=== PATIENT | male | born 1950 | race Caucasian/White ===

== ENCOUNTER 2023-03-11 09:40 | Inpatient (IN) | payer OTHER ==
[~2023-03-11] VITALS: Ht 172.7 cm; Wt 77.2 kg
[~2023-03-11 09:40] MED LIST: ASPI81CH PO; ATOR80 PO; Aspir 8181 MG PO; CLOP75 PO; DIVA250ER PO; GLIP10 PO; INSULANPEN SC; LISI5 PO; MAGNESIUM OXID500 MG PO; MELA3 PO; METF500C PO; METO25ER PO; MULTI-VITAMIN1 EAC2 PO; NITR.4SL SL; Novolog Fl100 UNIT/1 SQ; QUETIAPINE FUMA50 M2 PO; RISPERDAL PO; ROSU10TA PO; TICA90TA PO; TRAZ100 PO; Vitamin B-121000 MCG PO
[2023-03-11 10:44] LABS: BASOPHILS ABSOLUTE AUTO 0.04 K/mm3 (0.00-0.23); BASOPHILS PERCENT AUTO 0 % (0-2); EOSINOPHILS ABSOLUTE AUTO 0.15 K/mm3 (0.00-0.68); EOSINOPHILS PERCENT AUTO 2 % (0-6); Hematocrit 36.3 % (37.0-53.0); Hemoglobin 11.5 g/dL (13.5-17.5); IMMATURE GRAN ABSOLUTE AUTO 0.03 K/mm3 (0.00-0.10); IMMATURE GRAN PERCENT AUTO 0 % (0-1); LYMPHOCYTES ABSOLUTE AUTO 0.56 K/mm3 (0.84-5.20); LYMPHOCYTES PERCENT AUTO 6 % (21-46); MONOCYTES ABSOLUTE AUTO 0.49 K/mm3 (0.16-1.47); MONOCYTES PERCENT AUTO 5 % (4-13); Mean Corpuscular HGB Conc 31.7 g/dL (31.5-36.5); Mean Corpuscular Volume 89 fL (80-100); Mean Platelet Volume 10.3 fL (9.1-12.4); NEUTROPHILS ABSOLUTE AUTO 7.92 K/mm3 (1.96-9.15); NEUTROPHILS PERCENT AUTO 86 % (41-73); Platelet Count 227 K/mm3 (150-400); RDW Coefficient Variation 16.5 % (11.7-14.2); RDW Standard Deviation 53.3 fL (35.1-46.3); White Blood Cell Count 9.19 K/mm3 (4.00-11.30)
[2023-03-11 11:33] LABS: Influenza A, PCR NEGATIVE (NEGATIVE); Influenza B, PCR NEGATIVE (NEGATIVE); Resp Syncytial Virus, PCR NEGATIVE (NEGATIVE); SARS-Cov-2 (COVID-19) PCR, MMC NEGATIVE (NEGATIVE)
[2023-03-11] MEDS ORDERED: METO50ER PO (13:34)
--- NOTE | 2023-03-11 18:40 | NUR ---
ARRIVAL: I recieved report from Mellissa FLORIAN RN. Patient arrived to PCU 01 via gurney and was slid to the bed. He is alert and oriented. Oxygen via NC at 4l, saturations are difficult to obtain. His breating is even and unlabored. VSS. Patiet repositioned to his left side. Call light in reach.
[2023-03-11 19:05] LABS: Albumin, Blood 2.7 g/dL (3.4-5.0); Albumin/Globulin Ratio 0.8 (0.8-1.8); Bilirubin, Total 0.3 mg/dL (0.1-1.0); Bun/Creatinine Ratio 32.3 (12.0-20.0); Calcium, Blood 8.2 mg/dL (8.5-10.1); Creatinine, Blood 1.55 mg/dL (0.60-1.20); Globulin, Blood 3.5 g/dL (2.2-4.0); Potassium, Blood 4.6 mmol/L (3.5-5.5); Total Protein, Blood 6.2 g/dL (6.4-8.2)
[2023-03-11 20:49] VITALS: BP 103/92
[2023-03-12] VITALS (7 sets, daily range): BP systolic 108–120; BP diastolic 85–96
[2023-03-12 04:13] LABS: BASOPHILS ABSOLUTE AUTO 0.03 K/mm3 (0.00-0.23); BASOPHILS PERCENT AUTO 0 % (0-2); EOSINOPHILS ABSOLUTE AUTO 0.13 K/mm3 (0.00-0.68); EOSINOPHILS PERCENT AUTO 1 % (0-6); Hematocrit 35.3 % (37.0-53.0); Hemoglobin 11.2 g/dL (13.5-17.5); IMMATURE GRAN ABSOLUTE AUTO 0.02 K/mm3 (0.00-0.10); IMMATURE GRAN PERCENT AUTO 0 % (0-1); LYMPHOCYTES ABSOLUTE AUTO 0.77 K/mm3 (0.84-5.20); LYMPHOCYTES PERCENT AUTO 8 % (21-46); MONOCYTES ABSOLUTE AUTO 0.46 K/mm3 (0.16-1.47); MONOCYTES PERCENT AUTO 5 % (4-13); Mean Corpuscular HGB 27.1 pg (26.0-34.0); Mean Corpuscular HGB Conc 31.7 g/dL (31.5-36.5); Mean Corpuscular Volume 86 fL (80-100); Mean Platelet Volume 10.6 fL (9.1-12.4); NEUTROPHILS ABSOLUTE AUTO 7.88 K/mm3 (1.96-9.15); NEUTROPHILS PERCENT AUTO 85 % (41-73); Platelet Count 257 K/mm3 (150-400); RDW Coefficient Variation 16.4 % (11.7-14.2); RDW Standard Deviation 50.6 fL (35.1-46.3); Red Blood Cell Count 4.13 M/mm3 (4.30-5.90); White Blood Cell Count 9.29 K/mm3 (4.00-11.30)
[2023-03-12 04:31] LABS: Bun/Creatinine Ratio 31.4 (12.0-20.0); Calcium, Blood 8.2 mg/dL (8.5-10.1); Creatinine, Blood 1.59 mg/dL (0.60-1.20); Potassium, Blood 4.6 mmol/L (3.5-5.5)
--- NOTE | 2023-03-12 05:38 | NUR ---
SHIFT SUMMARY ASSUMED CARE OF PT AT 1900. PT IS A/OX4 BUT ODD. FOR EXAMPLE, PT REPEATS HIMSELF, SUCH STATING FAVORITE FOOD IS LIVER AND ONIONS AND PT WILL BRING UP IRRELIVENT SUBJECTS SUCH HIS BIRTHDAY BEING IN 4 MONTHS. HEART SOUNDS TACHY. PT RATE WAS BETWEEN 80-110 WHILE SLEEPING BUT 120-130 WHILE AWAKE. HOSPITALIST NOTIFIED AND ORDERED HOME MEDIATIONS. PT PITTING EDEMA IN LEGS. AT 0330 PT C/O CHEST PAIN LIKE WHEN HE HAD A HEART ATTACK. EKG DONE, HOSPITALIST ORDERED LABS. THIS NURSE WENT TO REASSESS AND ASKED OF PAIN WAS BETTER AND PT SAID "YES, AFTER THE TUMS". PT USED A CONDOM CATH DURING THE NOC. PT USED BEDPAN. HAS SOME RED AREA IN GROIN AND SCRAPES ON FEET.
--- NOTE | 2023-03-12 10:00 | NUR ---
UPDATE DRIVERS' CASH CLERK IN ROOM WITH PT.
--- NOTE | 2023-03-12 16:12 | NUR ---
SHIFT SUMMARY/REPORT GIVEN PT ALERT AND ORIENTED X 4. FORGETFUL AT TIMES. REPEATS QUESTIONS. HR STABLE. BP STABLE. NO CP OR PRESSURE REPORTED T/O SHIFT. DR. DEJESUS CONSULTED. PLAN TO CONT DIURESING PT AND POSSIBLE ANGIO LATER ON. OXYGEN SATURATION MAINTAINED ABOVE 92% ON 2 L VIA NC. PT 2 PERSON ASSIST UP TO COMMODE. DOES NOT USE CALL LIGHT, INSTRUCTED HOW TO USE MULTIPLE TIMES. BED ALARM IN PLACE. CALL LIGHT WITHIN REACH. REPORT GIVEN TO KATHY Gresham RN.
[2023-03-13 00:15] VITALS: BP 117/87
[2023-03-13 03:47] LABS: BASOPHILS ABSOLUTE AUTO 0.05 K/mm3 (0.00-0.23); BASOPHILS PERCENT AUTO 1 % (0-2); EOSINOPHILS ABSOLUTE AUTO 0.15 K/mm3 (0.00-0.68); EOSINOPHILS PERCENT AUTO 2 % (0-6); Hematocrit 34.6 % (37.0-53.0); Hemoglobin 11.2 g/dL (13.5-17.5); IMMATURE GRAN ABSOLUTE AUTO 0.02 K/mm3 (0.00-0.10); IMMATURE GRAN PERCENT AUTO 0 % (0-1); LYMPHOCYTES ABSOLUTE AUTO 0.93 K/mm3 (0.84-5.20); LYMPHOCYTES PERCENT AUTO 11 % (21-46); MONOCYTES ABSOLUTE AUTO 0.54 K/mm3 (0.16-1.47); MONOCYTES PERCENT AUTO 7 % (4-13); Mean Corpuscular HGB 27.4 pg (26.0-34.0); Mean Corpuscular HGB Conc 32.4 g/dL (31.5-36.5); Mean Corpuscular Volume 85 fL (80-100); Mean Platelet Volume 10.7 fL (9.1-12.4); NEUTROPHILS ABSOLUTE AUTO 6.66 K/mm3 (1.96-9.15); NEUTROPHILS PERCENT AUTO 80 % (41-73); Platelet Count 240 K/mm3 (150-400); RDW Coefficient Variation 16.4 % (11.7-14.2); RDW Standard Deviation 50.4 fL (35.1-46.3); Red Blood Cell Count 4.09 M/mm3 (4.30-5.90); White Blood Cell Count 8.35 K/mm3 (4.00-11.30)
[2023-03-13 04:16] LABS: Albumin, Blood 2.7 g/dL (3.4-5.0); Anion Gap 9 mmol/L (6-16); Blood Urea Nitrogen 56 mg/dL (8-24); Bun/Creatinine Ratio 33.3 (12.0-20.0); CO2, Blood 21 mmol/L (21-32); Calcium, Blood 8.6 mg/dL (8.5-10.1); Chloride, Blood 109 mmol/L (98-108); Creatinine, Blood 1.68 mg/dL (0.60-1.20); Glomerular Filtration Rate 43 (60-); Glucose, Blood 187 mg/dL (70-99); Phosphorus, Blood 3.8 mg/dL (2.5-4.9); Potassium, Blood 4.4 mmol/L (3.5-5.5); Sodium, Blood 139 mmol/L (136-145)
[2023-03-13 04:23] VITALS: BP 102/86
--- NOTE | 2023-03-13 04:27 | NUR ---
SHIFT SUMMARY ASSUMED CARE OF PT AT 1900. PT IS A/OX4. HEART SOUNDS TACHY. LUNG SOUNDS DIMINISHED AT BASES. PT REMAINED ON 2L NC, SATURATIONS ABOVE 95%. PT ONLY SLEPT ABOUT 10 MIN AT A TIME. PT WAS A 2P ASSIST TO BSC. PT HAD SMALL BM. PT USED CONDOM CATH DURING THE NOC. PT MADE NPO AT MIDNIGHT FOR POSSIBLE ANGIO PER CARDIOLOGY NOTE. PT STARTED ON FLUID RESTRICTION ALSO. PT HAD NO NEW COMPLAINTS.
[2023-03-13 07:26] VITALS: BP 122/98
--- NOTE | 2023-03-13 09:11 | NUR ---
UPDATE FACILITY OPERATIONS MANAGER AND HOSPITALIST NOTIFIED OF INCREASE IN BNP
[2023-03-13 11:16] VITALS: BP 109/92
--- NOTE | 2023-03-13 15:01 | NUR ---
update notified of 11 beat run of vtach. orders to do a repeat mag level
[2023-03-13 16:34] VITALS: BP 108/77
--- NOTE | 2023-03-13 17:43 | NUR ---
SHIFT SUMMARY PT ALERT AND ORIENTED X 4. FORGETFUL AT TIMES. PT REPEATS SELF FREQUENTY. YARD CALLER AND MD NOTIFIED OF PT'S INCREASE IN BNP. PT 2 PERSON ASSIST TO CHAIR FOR MEALS AND COMMODE. PT DOES NOT USE CALL LIGHT. FREQUENT CHECKS TO SEE IF PT IS IN NEED OF ASSISTANCE. BP STABLE. HR STABLE. SR-ST 130'S. AWARE OF 11 BEAT RUN OF VTACH. MAG WNL. OXYGEN SATURATION MAINTAINED ABOVE 92% ON 2 L VIA NC. CAREGIVER AT BEDSIDE THIS EVENING. PT Q 2 TURN. COCCYX RED. MEPLEX IN PLACE. NO REPORTS OF CP OR PRESSURE. BED IN LOWEST POSITION. BED ALARM IN PLACE. WILL CONT TO MONITOR UNTIL REPORT GIVEN TO NIGHTSHIFT RN.
[2023-03-13 20:40] VITALS: BP 111/98
[2023-03-14] VITALS: BP 123/94
[2023-03-14 03:58] LABS: BASOPHILS ABSOLUTE AUTO 0.04 K/mm3 (0.00-0.23); BASOPHILS PERCENT AUTO 0 % (0-2); EOSINOPHILS ABSOLUTE AUTO 0.12 K/mm3 (0.00-0.68); EOSINOPHILS PERCENT AUTO 1 % (0-6); Hematocrit 33.7 % (37.0-53.0); Hemoglobin 11.2 g/dL (13.5-17.5); IMMATURE GRAN ABSOLUTE AUTO 0.03 K/mm3 (0.00-0.10); IMMATURE GRAN PERCENT AUTO 0 % (0-1); LYMPHOCYTES ABSOLUTE AUTO 0.57 K/mm3 (0.84-5.20); LYMPHOCYTES PERCENT AUTO 6 % (21-46); MONOCYTES ABSOLUTE AUTO 0.47 K/mm3 (0.16-1.47); MONOCYTES PERCENT AUTO 5 % (4-13); Mean Corpuscular HGB 27.6 pg (26.0-34.0); Mean Corpuscular HGB Conc 33.2 g/dL (31.5-36.5); Mean Corpuscular Volume 83 fL (80-100); Mean Platelet Volume 10.7 fL (9.1-12.4); NEUTROPHILS PERCENT AUTO 88 % (41-73); Platelet Count 244 K/mm3 (150-400); RDW Coefficient Variation 16.3 % (11.7-14.2); RDW Standard Deviation 48.7 fL (35.1-46.3); Red Blood Cell Count 4.06 M/mm3 (4.30-5.90); White Blood Cell Count 10.43 K/mm3 (4.00-11.30)
[2023-03-14 04:18] LABS: Albumin, Blood 2.7 g/dL (3.4-5.0); Anion Gap 7 mmol/L (6-16); Blood Urea Nitrogen 50 mg/dL (8-24); Bun/Creatinine Ratio 34.7 (12.0-20.0); CO2, Blood 26 mmol/L (21-32); Calcium, Blood 8.5 mg/dL (8.5-10.1); Chloride, Blood 106 mmol/L (98-108); Creatinine, Blood 1.44 mg/dL (0.60-1.20); Glomerular Filtration Rate 51 (60-); Glucose, Blood 191 mg/dL (70-99); Phosphorus, Blood 3.4 mg/dL (2.5-4.9); Potassium, Blood 4.2 mmol/L (3.5-5.5); Sodium, Blood 139 mmol/L (136-145)
[2023-03-14 04:24] VITALS: BP 115/93
--- NOTE | 2023-03-14 04:28 | NUR ---
SHIFT SUMMARY ASSUMED CARE OF PT AT 1900. PT IS A/OX4. PT HR RANGED FROM 70-135. LUNG SOUNDS DIMINISHED. PT WAS RA FOR PART OF THE SHIFT BUT DURING THE NOC NEEDED 2L NC TO MAINTAIN SATS. PT HAD CONDOM CATH FOR STRICT I/O. PT REMAINED IN BED BUT DID NOT SLEEP.
[2023-03-14 07:34] VITALS: BP 117/93
--- NOTE | 2023-03-14 10:09 | NUR ---
AM NOTE; PT ALERT AND ORIENTED X3, FLAT AFFECT HX SCHIZO, ABLE TO COMMUNICATE NEEDS COOPERATIVE WITH CARES. 1PA FOR TRANSFERS. PT WAS ASSISTED TO CHAIR THIS MORNING FOR BREAKFAST WITH NO ISSUES RECEIVED A BEDBATH WELL. DENIES CHEST PAIN/PRESSURE. VITALS HRR ST 120'S, SBP 115'S, SATS KEPT ABOVE 92% ON RA, AFEBRILE. CONDOM CATH WAS IN PLACE AT SHIFT CHANGE FOR ACCURATE I&O'S PT HAD A HARD TIME KEEPING CONDO CATH IN PLACE, ATTENDS WITH PEE PAD ON. PT ABLE TO USE BSC FOR TOILETING. REMAINS ON 2L FR PT COMPLIANT. NO OTHER ISSUES ENCOUNTERED THIS MORNING PT NOW BACK IN BED, CALL LIGHTS IN REACH WILL CONTINUE TO MONITOR
[2023-03-14 11:36] VITALS: BP 105/83
[2023-03-14 16:43] VITALS: BP 107/84
--- NOTE | 2023-03-14 17:19 | NUR ---
PT SUMMARY: SEE AM NOTES; PT HAD AN EPISODE OF CHEST PRESSURE 5/10 TODAY, MG, TROP AND BNP WAS ORDERED MG AND TROP ARE WNL, BNP TRENDED DOWN 3518. TYLENOL WAS ORDERED AND WAS EFFECTIVE. REPEAT CHEST XRAY WAS DONE SMALL-MODERATE PLEURAL EFFUSION NOTED, LASIX INCREASED TO 60MG. PT REMAINED ON RA SATS LEPT ABOVE 95%, SBP 110'S, HRR ST 120'S BACK AND FORTH SR 70'S WITH BIGEMINY, METOPROLOL IV 5MG WAS GIVEN X1 NO CHANGES ON HEART RATE STILL CONSISTENTLY ST 120'S, AFEBRILE. CAREGIVERS WER IN TODAY WAS GIVEN UPDATED REGARDING PT'S STATUS. PT REMAINED ON 2L FLUID RESTRICTION, INCONTINTENT OF URINE, USES BSC FOR BM'S. NO OTHER ISSUES AT THIS TIME. PT CALLS APPROPRIATELY, COOPERATIVE WITH CARES WILL REPORT TO ONCOMING SHIFT
[2023-03-14 20:12] VITALS: BP 96/76
[2023-03-15] VITALS (9 sets, daily range): BP systolic 93–120; BP diastolic 72–100
[2023-03-15 03:28] LABS: BASOPHILS ABSOLUTE AUTO 0.04 K/mm3 (0.00-0.23); BASOPHILS PERCENT AUTO 0 % (0-2); EOSINOPHILS ABSOLUTE AUTO 0.18 K/mm3 (0.00-0.68); EOSINOPHILS PERCENT AUTO 2 % (0-6); Hematocrit 34.1 % (37.0-53.0); Hemoglobin 11.2 g/dL (13.5-17.5); IMMATURE GRAN ABSOLUTE AUTO 0.03 K/mm3 (0.00-0.10); IMMATURE GRAN PERCENT AUTO 0 % (0-1); LYMPHOCYTES ABSOLUTE AUTO 0.73 K/mm3 (0.84-5.20); LYMPHOCYTES PERCENT AUTO 8 % (21-46); MONOCYTES PERCENT AUTO 4 % (4-13); Mean Corpuscular HGB 27.5 pg (26.0-34.0); Mean Corpuscular HGB Conc 32.8 g/dL (31.5-36.5); Mean Corpuscular Volume 84 fL (80-100); Mean Platelet Volume 10.4 fL (9.1-12.4); NEUTROPHILS ABSOLUTE AUTO 7.77 K/mm3 (1.96-9.15); NEUTROPHILS PERCENT AUTO 85 % (41-73); Platelet Count 240 K/mm3 (150-400); RDW Coefficient Variation 16.4 % (11.7-14.2); RDW Standard Deviation 49.4 fL (35.1-46.3); Red Blood Cell Count 4.08 M/mm3 (4.30-5.90); White Blood Cell Count 9.15 K/mm3 (4.00-11.30)
[2023-03-15 03:47] LABS: Albumin, Blood 2.7 g/dL (3.4-5.0); Anion Gap 9 mmol/L (6-16); Blood Urea Nitrogen 42 mg/dL (8-24); Bun/Creatinine Ratio 31.3 (12.0-20.0); CO2, Blood 28 mmol/L (21-32); Calcium, Blood 8.7 mg/dL (8.5-10.1); Chloride, Blood 101 mmol/L (98-108); Creatinine, Blood 1.34 mg/dL (0.60-1.20); Glomerular Filtration Rate 56 (60-); Glucose, Blood 97 mg/dL (70-99); Phosphorus, Blood 3.1 mg/dL (2.5-4.9); Potassium, Blood 3.7 mmol/L (3.5-5.5); Sodium, Blood 138 mmol/L (136-145)
--- NOTE | 2023-03-15 05:48 | NUR ---
SHIFT SUMMARY ASSUMED CARE OF PT AT 1900. PT IS A/OX4 BUT FORGETFUL. PT ATTEMPTED TO GET OUT OF BED ONCE THIS SHIFT. HEART SOUNDS TACHY. LUNG SOUNDS DIMINSHED AT BASES. PT WA RA T/O THE NOC. CONDOM CATH. PT HAD NO NEW COMPLAINTS BUT DID NOT SLEEP AT ALL TONIGHT.
--- NOTE | 2023-03-15 17:58 | NUR ---
SHIFT SUMMARY: PT HAD NO ACUTE EVENTS THROUGHOUT THE SHIFT. PT VITALS REMAINED STABLE WITH SBP IN THE 120'S. HR IN THE 90'S-110'S. PT DENIES ANY CHEST PAIN OR PRESSURE. PT ABLE TO AMBULATE TO THE COMMODE WITH A 1 PERSON ASSIST.PT HAD A BED BATH THIS AFTERNOON. PT CONTINUES TO REMAIN ALERT AND ORIENTED X4. PT IMPULSIVE AT TIMES, BED ALARM TURNED ON WITH FREQUENT REMINDERS TO PUSH THE CALL LIGHT FOR ASSISTANCE. PT CONTINUES TO REMAIN ON A 1000ML FLUID RESTRICTION, PT COMPLIANT WITH THIS ORDER. PT HAS A CONDOM CATH IN PLACE WITH 1500 MLS URINE OUTPUT. WHICH IS DRAINING TO GRAVITY, YELLOW URINE. PT CAREGIVER AT THE BEDSIDE THIS AFTERNOON AND UPDATED TO PLAN OF CARE. POSSIBLE PLANS FOR AN ANGIOGRAM TOMORROW IF PT REMAINS STABLE T/O THE NIGHT. PT NPO AT MIDNIGHT FOR POSSIBLE PROCEDURE. WILL CONTINUE TO MONITOR AND GIVE REPORT TO ONCOMING NOC SHIFT RN.
[2023-03-16] VITALS (14 sets, daily range): BP systolic 90–115; BP diastolic 71–88
[2023-03-16 03:40] LABS: BASOPHILS ABSOLUTE AUTO 0.03 K/mm3 (0.00-0.23); BASOPHILS PERCENT AUTO 0 % (0-2); EOSINOPHILS ABSOLUTE AUTO 0.24 K/mm3 (0.00-0.68); EOSINOPHILS PERCENT AUTO 4 % (0-6); Hematocrit 33.4 % (37.0-53.0); Hemoglobin 11.2 g/dL (13.5-17.5); IMMATURE GRAN ABSOLUTE AUTO 0.02 K/mm3 (0.00-0.10); IMMATURE GRAN PERCENT AUTO 0 % (0-1); LYMPHOCYTES ABSOLUTE AUTO 0.79 K/mm3 (0.84-5.20); LYMPHOCYTES PERCENT AUTO 11 % (21-46); MONOCYTES ABSOLUTE AUTO 0.36 K/mm3 (0.16-1.47); MONOCYTES PERCENT AUTO 5 % (4-13); Mean Corpuscular HGB 27.7 pg (26.0-34.0); Mean Corpuscular HGB Conc 33.5 g/dL (31.5-36.5); Mean Corpuscular Volume 83 fL (80-100); Mean Platelet Volume 10.4 fL (9.1-12.4); NEUTROPHILS ABSOLUTE AUTO 5.47 K/mm3 (1.96-9.15); NEUTROPHILS PERCENT AUTO 79 % (41-73); Platelet Count 228 K/mm3 (150-400); RDW Coefficient Variation 16.7 % (11.7-14.2); RDW Standard Deviation 49.4 fL (35.1-46.3); Red Blood Cell Count 4.05 M/mm3 (4.30-5.90); White Blood Cell Count 6.91 K/mm3 (4.00-11.30)
[2023-03-16 03:52] LABS: Bun/Creatinine Ratio 28.7 (12.0-20.0); Calcium, Blood 8.4 mg/dL (8.5-10.1); Creatinine, Blood 1.29 mg/dL (0.60-1.20); Magnesium, Blood 1.5 mg/dL (1.6-2.4); Potassium, Blood 3.9 mmol/L (3.5-5.5)
--- NOTE | 2023-03-16 05:01 | NUR ---
SHIFT SUMMARY PT IS A/Ox4 AND COOPERATIVE WITH CARE PROVIDED BY MEMBERS OF STAFF. ANSWERS QUESTIONS APPROPRIATELY AND ABLE TO MAKE HIS NEEDS KNOWN. HX OF SCHIZOAFFECTIVE DISORDER WITH PT BECOMING IMPULSIVE AT TIMES. CARDIAC GÓMEZ, REMAINS IN SR-JUNCTIONAL TACH WITH HR RANGING IN THE 70-80'S AND THEN INTERMITTENTLY JUMPING TO 120'S. PT ALSO HAS SMALL 16 BEAT RUN OF VTACH. PT WAS ASYMPTOMATIC OF INCIDENT WITH NO REPORTS OF PALPITAIONS OR DIZZINESS. NO REPORTS OF CP OR PRESSURE T/O THE NIGHT. SBP HAS BEEN SOFT WITH SP IN THE 90'S, BUT HAS BEEN STABLE. RESPIRATORY GÓMEZ, MAINTAINS SPO2 >90% ON RA. INTERMITTENT EPISODES OF SOB WHEN LAYING FLAT OR WITH ABULATION. PT DOES RECOVER QUICKY HOWEVER. PER DAYSHIFT REPORT, PT DOSES OF LASIX HAVE BEEN INCREASED. GI/, PT IS INCONTINENT OF URINE, CONDOM CATH IN PLACE, PATENT AND DRAINING CLEAR/YELLOW URINE TO GRAVITY. ABLE TO ABULATE TO BSC WITH TWO PERSON ASSIST. PT HAS BEEN NPO SINCE MDN FOR SCHEDULED ANGIO THIS AM. NO NEW ORDERS AT THIS TIME, WILL REPORT TO ONCOMING RN. PETRA TRONCOSO OF THIS NOTE
--- NOTE | 2023-03-16 08:41 | NUR ---
AM NOTE: PT ALERT AND ORIENTED X4. ABLE TO ANSWER QUESTIONS AND MAKE NEEDS KNOWN. PT SBP 115 WITH HR 120'S. PT DENIES ANY CHEST PAIN/PRESSURE OR SOB. PT HAS BILATERAL EDEMA IN LOWER EXTREMETIES, SCROTUM AND MID ABDOMEN. PT DENIES ANY PAIN T/O BODY. DR. DEJESUS AT BEDSIDE THIS MORNING WITH PLANS FOR AN ANGIOGRAM THIS AFTERNOON. HELD THE LOVENOX PER DR. DEJESUS THIS MORNING FOR PROCEDURE. PT MADE NPO AT MIDNIGHT. WILL CONTINUE TO MONITOR T/O THE SHIFT.
--- NOTE | 2023-03-16 17:41 | NUR ---
SHIFT SUMMARY: PT REMAINED ALERT AND ORIENTED X4 THROUGHOUT THE SHIFT. ABLE TO ANSWER QUESTIONS AND MAKE NEEDS KNOWN. PT COOPERATIVE AND PLEASANT WITH STAFF. PT IMPULSIVE AT TIMES AND REMINDED TO USE THE CALL LIGHT FOR ASSISTANCE. PT BED ALARM ON FOR SAFETY. PT VITALS REMAINED STABLE WITH SBP 100'S HR 70'S-120'S. PT DENIED ANY CHEST PAIN OR PRESSURE T/O THE SHIFT. PT WENT FOR ANGIOGRAM TODAY AND RETURNED WITH A TR BAND IN THE RIGHT WRIST, WELL AN ACCESS SITE IN THE RIGHT UPPER ARM. TR BAND HAD 10 MLS OF AIR WHICH WAS DEFLATED AND REMOVED WITH NO BLEEDING, OOZING OR HEMATOMA PRESENT. PT HAS OBSITE IN PLACE AND ARMBOARD A REMINDER TO NOT USE WRIST. PT UPPER SITE HAS A DRESSING WHICH HAS NO BLEEDING, OOZING OR HEMATOMA PRESENT. PER DR. DEJESUS PT NEEDS A SURGICAL CONSULT FOR FURTHER INTERVENTION. CAREGIVER WAS AT THE BEDSIDE THIS EVENING AND WAS UPDATED TO PLAN OF CARE. PT TRANSITIONED TO PO LASIX WITH THE FIRST DOSE GIVEN THIS EVENING.PT HAS A CONDOM CATH IN PLACE, WHICH HAS HAD A TOTAL OF 2750 ML T/O THE SHIFT OF PALE YELLOW URINE, WHICH IS DRAINING TO GRAVITY. WILL CONTINUE TO MONITOR AND GIVE REPORT TO THE ONCOMING [facility] SHIFT RN.
[2023-03-17] VITALS (10 sets, daily range): BP systolic 79–98; BP diastolic 62–81
[2023-03-17 03:25] LABS: BASOPHILS ABSOLUTE AUTO 0.03 K/mm3 (0.00-0.23); BASOPHILS PERCENT AUTO 1 % (0-2); EOSINOPHILS ABSOLUTE AUTO 0.26 K/mm3 (0.00-0.68); EOSINOPHILS PERCENT AUTO 4 % (0-6); Hematocrit 33.5 % (37.0-53.0); Hemoglobin 11.3 g/dL (13.5-17.5); IMMATURE GRAN ABSOLUTE AUTO 0.02 K/mm3 (0.00-0.10); IMMATURE GRAN PERCENT AUTO 0 % (0-1); LYMPHOCYTES ABSOLUTE AUTO 0.59 K/mm3 (0.84-5.20); LYMPHOCYTES PERCENT AUTO 9 % (21-46); MONOCYTES ABSOLUTE AUTO 0.38 K/mm3 (0.16-1.47); MONOCYTES PERCENT AUTO 6 % (4-13); Mean Corpuscular HGB 27.8 pg (26.0-34.0); Mean Corpuscular HGB Conc 33.7 g/dL (31.5-36.5); Mean Corpuscular Volume 82 fL (80-100); Mean Platelet Volume 9.9 fL (9.1-12.4); NEUTROPHILS ABSOLUTE AUTO 4.97 K/mm3 (1.96-9.15); NEUTROPHILS PERCENT AUTO 80 % (41-73); Platelet Count 254 K/mm3 (150-400); RDW Coefficient Variation 16.8 % (11.7-14.2); RDW Standard Deviation 49.1 fL (35.1-46.3); Red Blood Cell Count 4.07 M/mm3 (4.30-5.90); White Blood Cell Count 6.25 K/mm3 (4.00-11.30)
[2023-03-17 03:41] LABS: Bun/Creatinine Ratio 24.8 (12.0-20.0); Calcium, Blood 8.7 mg/dL (8.5-10.1); Creatinine, Blood 1.33 mg/dL (0.60-1.20); Magnesium, Blood 1.9 mg/dL (1.6-2.4); Potassium, Blood 3.4 mmol/L (3.5-5.5)
--- NOTE | 2023-03-17 05:16 | NUR ---
SHIFT SUMMARY PT A&Ox4, CALLS AND COMMUNICATES NEEDS APPROPRIATELY, PT WITH FLAT AFFECT. BP SOFT WITH SBP 90's, MAP> 65, ASYMPTOMATIC. JUNCTIONAL SR-ST 70-110's, DENIES CP/PRESSURE. SpO2> 92% RA, DENIES SOB. PT DID NOT TRY TO GET OOB WITHOUT STAFF. CONDOM CATH CHANGED AT START OF SHIFT, REMAINED IN PLACE, DRAINING TO GRAVITY. NO BM THIS SHIFT. R RADIAL SITE REMAINS UNCHANGED, WNL, ARM BOARD IN PLACE. R BASILIC SITE REMAINS UNCHANGED, WNL, DRESSING C/D/I. BOTH SITES WITH NO S/S OF BRUISING, BLEEDING, OR HEMATOMA. NO OTHER EVENTS, WILL REPORT TO ONCOMING RN.
--- NOTE | 2023-03-17 17:42 | NUR ---
SHIFT SUMMARY PT A&OX4, FLAT AFFECT. COOPERATIVE. S02>90% ON RA. TELEMETRY SHOWS SINUS TACH, MOSTLY 100'S-110'S. BP SOFT. R RADIAL AND BASILIC SITES SOFT, NO BRUISING, NO BLEEDING. ARM BOARD IN PLACE. PT INCONTINENT VOID X2 THIS SHIFT, FULL BED CHANGE. NO BM THIS SHIFT. DENIES PAIN. UP TO CHAIR SBA W/ FWW TO SIT THIS EVENING AND EAT DINNER. REPOSITIONED Q2H. CALL LIGHT IN REACH. BED ALARM ON.
[2023-03-18 04:00] VITALS: BP 104/76
[2023-03-18 04:05] LABS: Hematocrit 33.9 % (37.0-53.0); Hemoglobin 11.2 g/dL (13.5-17.5); Mean Corpuscular HGB 27.8 pg (26.0-34.0); Mean Corpuscular Volume 84 fL (80-100); Mean Platelet Volume 10.4 fL (9.1-12.4); Platelet Count 241 K/mm3 (150-400); RDW Standard Deviation 50.6 fL (35.1-46.3); Red Blood Cell Count 4.03 M/mm3 (4.30-5.90); White Blood Cell Count 6.24 K/mm3 (4.00-11.30)
[2023-03-18 04:59] LABS: Albumin, Blood 2.8 g/dL (3.4-5.0); Albumin/Globulin Ratio 0.7 (0.8-1.8); Bilirubin, Total 0.5 mg/dL (0.1-1.0); Bun/Creatinine Ratio 24.5 (12.0-20.0); Calcium, Blood 8.5 mg/dL (8.5-10.1); Creatinine, Blood 1.47 mg/dL (0.60-1.20); Globulin, Blood 3.8 g/dL (2.2-4.0); Potassium, Blood 3.5 mmol/L (3.5-5.5); Total Protein, Blood 6.6 g/dL (6.4-8.2)
--- NOTE | 2023-03-18 05:26 | NUR ---
SHIFT SUMMARY PT REMAINS A/Ox4 AND COOPERATIVE WITH CARE PROVIDED BY MEMBERS OF STAFF. ANSWERS QUESTIONS APPROPRIATELY AND ABLE TO MAKE HIS NEEDS KNOWN. NO ACUTE EVENTS OVERNIGHT. HX OF SCHIZOAFFECTIVE DISORDER, SO PT CAN BE IMPULSIVE AT TIMES. EASILY REDIRECTABLE. CARDIAC GÓMEZ, CONTINUES TO BOUNCE AROUND ST-JUNCTIONAL RHYTHM WITH HR RANGING 80-110'S. NO REPORTS OF CP OR PRESSURE OF THIS NOTE. SBP REMAINS SOFT (80-90'S), BUT MAP >70. RESPIRATORY GÓMEZ, MAINTAINS SPO2 >90% RA WITH NO REPORTS OF SOB OR DYSPNEA T/O THE NIGHT. ABLE TO ABULATE TO BSC WITH 1 ASSIST W/FWW. CONTINUES TO BE INCONTINENT OF URINE, ATTENDS IN PLACE AND CHANGED PRN. Q2 TURNS PERFORMED ORDERED. RIGHT RADIAL ACCESS SITE FROM ANGIO 03/16 WNL, PROTECTIVE ARM BOARD STILL IN PLACE. BED ALARM ON AND CHAIR ALARM ON WHEN UP IN CHAIR. NO NEW ORDERS AT THIS TIME, WILL REPORT TO ONCOMING RN. PETRA TRONCOSO OF THIS NOTE
[2023-03-18 07:44] VITALS: BP 119/98
--- NOTE | 2023-03-18 11:14 | NUR ---
RN/DAY SHIFT SUMMARY MORNING SHIFT REPORT RECIEVED DURING THE MORNING GREETING WITH THE PATIENT. THE PAITENT WAS THEN ASSESSED AND MEDICATIONS WERE GIVEN WITH NO ISSUES. THE PATIENT HAS A NOTED FLAT AFFECT BUT IS PLEASANT OTHERWISE. CONTINUEING TO MONITOR.
[2023-03-18 11:28] VITALS: BP 90/71
--- NOTE | 2023-03-18 19:04 | NUR ---
TRANSFER: REPORT RECEIVED FROM RAGMANVU. PT TO UNIT AT ABOUT 1640. PT IS A/O, VSS. PT ORIENTED TO ROOM AND GIVEN CALL LIGHT. BED ALARM ON FOR SAFETY. LITTLE IS WNL AND DRAINING. HYDRO PLANT TECHNICIAN SITES AT R WRIST AND R AC ARE WNL, NO EDEMA OR REDNESS. TELE STABLE, AND VERIFIED WITH InVitae. PT DENIED CP OR SOB. WILL CTM AND REPORT TO NOC RN
[2023-03-18 20:17] VITALS: BP 93/70
[2023-03-19 04:54] VITALS: BP 118/82
[2023-03-19 05:08] LABS: Hematocrit 32.9 % (37.0-53.0); Hemoglobin 10.8 g/dL (13.5-17.5); Mean Corpuscular HGB 27.8 pg (26.0-34.0); Mean Corpuscular HGB Conc 32.8 g/dL (31.5-36.5); Mean Corpuscular Volume 85 fL (80-100); Mean Platelet Volume 10.2 fL (9.1-12.4); Platelet Count 241 K/mm3 (150-400); RDW Coefficient Variation 17.3 % (11.7-14.2); RDW Standard Deviation 51.6 fL (35.1-46.3); Red Blood Cell Count 3.89 M/mm3 (4.30-5.90)
--- NOTE | 2023-03-19 05:27 | NUR ---
EOS NOTE PATIENT A/OX4, FLAT AFFECT, CAN BE IMPULSIVE. BED ALARM IS ON, CALL LIGHT WITHIN REACH. EDUCATED PATIENT JACKHAMMER OPERATOR LIGHT USAGE MULTIPLE TIMES, PATIENT WOULD SET ALARM OFF RATHER THAN CALL FOR NEEDS. PATIENT DID NOT GRASP CALL LIGHT USAGE. PATIENT REMAINED ON BBB IN 100'S WITH PVC'S. FLUID RESTRICTION REMAINS IN PLACE, PATIET FOLLOWS IT APPROPRIATLY. ACCIDENTLY PULLED CONDOM CATH A FEW TIMES, PATIENT WAS PUT IN A BRIEF. MOSTLY INCONTINENT, SET ALARM OFF ONCE TO ATTEMPT TO USE A URINAL BUT PATIENT HAD ALREADY SOILED HIMSELF. ABRASIONS/SKIN TEARS THROUGHOUT IN SEEMINGLY DIFFERENT STAGES OF HEALING. PATIENTS SKIN APPEARS THIN AND FRAGILE. VSS, CALL LIGHT WITHIN REACH, BED ALARM ON. PATIENT GAIT IS SLOW, NOT INCREDIBLY WELL BALANCED, MOSTLY SHUFFLED.
[2023-03-19 05:43] LABS: Albumin, Blood 2.6 g/dL (3.4-5.0); Albumin/Globulin Ratio 0.8 (0.8-1.8); Bilirubin, Total 0.8 mg/dL (0.1-1.0); Bun/Creatinine Ratio 23.8 (12.0-20.0); Calcium, Blood 8.7 mg/dL (8.5-10.1); Creatinine, Blood 1.3 mg/dL (0.60-1.20); Globulin, Blood 3.4 g/dL (2.2-4.0); Potassium, Blood 3.5 mmol/L (3.5-5.5)
[2023-03-19 07:30] VITALS: BP 112/82
[2023-03-19 14:11] VITALS: BP 99/80
[2023-03-19] MEDS ORDERED: FURO20 PO (17:01)
--- NOTE | 2023-03-19 17:39 | NUR ---
DISCHARGE PT DISCHARGED HOME FROM UNIT AT APROX 1645. PT DETASSELING CREW SUPERVISOR GIVEN WRITTEN AND VERBAL INSTRUCTIONS AND VERBALIZED UNDERSTANDING. IV REMOVED. TELE REMOVED. DETASSELING CREW SUPERVISOR ASSISTED WITH DRESSING. WC TO CAR. [facility].
== END 2023-03-19 16:45 | disposition home health service (06) | DRG 280 ==
LOC: ER 09:40 → PCU 15:56 → SURS 15:56 → PCU 18:19 → SURS 03-18 17:45
PROVIDERS: Emergency Medicine; Internal Medicine; ADMIT Family Medicine
PROC: 4A023N8 Measurement of Cardiac Sampling and Pressure, Bilateral, Percutaneous Approach (ICD-10-PCS; principal; 2023-03-16)
PROC: B2161ZZ Fluoroscopy of Right and Left Heart using Low Osmolar Contrast (ICD-10-PCS; 2023-03-16)
PROC: B246ZZ3 Ultrasonography of Right and Left Heart, Intravascular (ICD-10-PCS; 2023-03-16)
DX: I11.0 Hypertensive heart disease with heart failure (principal); I21.A1 Myocardial infarction type 2; I50.21 Acute systolic (congestive) heart failure; R57.0 Cardiogenic shock; J96.01 Acute respiratory failure with hypoxia; J90 Pleural effusion, not elsewhere classified; N17.9 Acute kidney failure, unspecified; E87.20 Acidosis, unspecified; I47.29 Other ventricular tachycardia; Z20.822 Contact with and (suspected) exposure to COVID-19; Z66 Do not resuscitate; I25.10 Atherosclerotic heart disease of native coronary artery without angina pectoris; E83.42 Hypomagnesemia; G20 Parkinson's disease; E11.65 Type 2 diabetes mellitus with hyperglycemia; K21.9 Gastro-esophageal reflux disease without esophagitis; I50.82 Biventricular heart failure; F25.9 Schizoaffective disorder, unspecified; D63.1 Anemia in chronic kidney disease; I25.2 Old myocardial infarction; R62.7 Adult failure to thrive; R79.1 Abnormal coagulation profile; I08.1 Rheumatic disorders of both mitral and tricuspid valves; I25.5 Ischemic cardiomyopathy; E78.5 Hyperlipidemia, unspecified; N18.2 Chronic kidney disease, stage 2 (mild); N50.89 Other specified disorders of the male genital organs; D64.9 Anemia, unspecified; K80.20 Calculus of gallbladder without cholecystitis without obstruction; K82.8 Other specified diseases of gallbladder; E88.09 Other disorders of plasma-protein metabolism, not elsewhere classified; I27.20 Pulmonary hypertension, unspecified; E11.22 Type 2 diabetes mellitus with diabetic chronic kidney disease; Z99.81 Dependence on supplemental oxygen; Z95.5 Presence of coronary angioplasty implant and graft; Z68.28 Body mass index [BMI] 28.0-28.9, adult; Z79.4 Long term (current) use of insulin; Z79.01 Long term (current) use of anticoagulants; Z79.82 Long term (current) use of aspirin; Z79.899 Other long term (current) drug therapy
CPT/HCPCS: 0241U; 36415; 71045; 71260; 76937; 80048; 80053; 80069; 82947; 83605; 83735; 83880; 84484; 85025; 85027; 85379; 87040; 92526; 92610; 93005; 93010; 93460; 93970; 94760; 94761; 96365-59; 96366-59; 96367-59; 96375-59; 97110; 97162; 97530; 99152; 99153; 99285-25; A9270; C1769; C1887; C1894; C8929; J0456; J0696; J1644; J1650; J1815; J1940; J2250; J3010; J3475; J7030; J7050; Q9957; Q9967

== ENCOUNTER 2023-04-21 12:41 | Inpatient (IN) | payer OTHER ==
[~2023-04-21] VITALS: Ht 180.3 cm; Wt 74.4 kg
[2023-04-21] VITALS (19 sets, daily range): BP systolic 77–118; BP diastolic 43–85
[~2023-04-21 12:41] MED LIST changes: +FURO20 PO; +METO50ER PO
[2023-04-21 13:29] LABS: BASOPHILS ABSOLUTE AUTO 0.02 K/mm3 (0.00-0.23); BASOPHILS PERCENT AUTO 0 % (0-2); EOSINOPHILS ABSOLUTE AUTO 0.06 K/mm3 (0.00-0.68); EOSINOPHILS PERCENT AUTO 1 % (0-6); Hematocrit 32.7 % (37.0-53.0); Hemoglobin 10.4 g/dL (13.5-17.5); IMMATURE GRAN ABSOLUTE AUTO 0.03 K/mm3 (0.00-0.10); IMMATURE GRAN PERCENT AUTO 0 % (0-1); LYMPHOCYTES ABSOLUTE AUTO 0.51 K/mm3 (0.84-5.20); LYMPHOCYTES PERCENT AUTO 7 % (21-46); MONOCYTES ABSOLUTE AUTO 0.37 K/mm3 (0.16-1.47); MONOCYTES PERCENT AUTO 5 % (4-13); Mean Corpuscular HGB 28.5 pg (26.0-34.0); Mean Corpuscular HGB Conc 31.8 g/dL (31.5-36.5); Mean Corpuscular Volume 90 fL (80-100); Mean Platelet Volume 10.8 fL (9.1-12.4); NEUTROPHILS ABSOLUTE AUTO 6.41 K/mm3 (1.96-9.15); NEUTROPHILS PERCENT AUTO 87 % (41-73); Platelet Count 227 K/mm3 (150-400); RDW Coefficient Variation 17.6 % (11.7-14.2); RDW Standard Deviation 57.8 fL (35.1-46.3); Red Blood Cell Count 3.65 M/mm3 (4.30-5.90)
[2023-04-21 13:53] LABS: Albumin, Blood 2.7 g/dL (3.4-5.0); Albumin/Globulin Ratio 0.8 (0.8-1.8); Bilirubin, Total 0.4 mg/dL (0.1-1.0); Bun/Creatinine Ratio 37.6 (12.0-20.0); Calcium, Blood 7.8 mg/dL (8.5-10.1); Creatinine, Blood 2.02 mg/dL (0.60-1.20); Globulin, Blood 3.4 g/dL (2.2-4.0); Potassium, Blood 4.2 mmol/L (3.5-5.5); Total Protein, Blood 6.1 g/dL (6.4-8.2)
--- NOTE | 2023-04-21 19:07 | NUR ---
ICU ADMISSION: REPORT RECEIVED FROM ESTELA MACIEL IN ED. PT ARRIVED TO ICU-03 AT APPROX 1820. ON ARRIVAL, THE PT IS A&O TO ALL, ALTHOUGH NOTED TO BE A POOR HISTORIAN WHEN QUESTIONED ABOUT RECENT PRIOR ADMISSION. HE VISIBLY DYSNPEIC WHILE LAYING FLAT. LS COARSE/ DIM T/O, PT ON RA W/ O2 SATS > 92%. MONITOR SHOWS AFIB W/ HR 110-150s, BP STABLE. PT HAS NO GI COMPLAINTS & IS REQUESTING TO EAT. DR PERRY AT BEDSIDE COMPLETING CONSULTATION EVAL AT THAT TIME & STS THE PT IS OKAY TO EAT. LASIX ORDERED & GIVEN PER EMAR, THE PT STS HE WILL BE ABLE TO USE A URINAL. NO VOID SINCE ADMIT TO ICU. SKIN CONDITION OVERALL INTACT, ECCHYMOTIC. COCCYX IS SLIGHTLY PINK/ REDENNED, BLANCHABLE. PT's CAREGIVER, LEONELA, IS GOING TO BRING A COPY OF HIS HOME MEDICATION LIST IN AM. WILL CONTINUE TO MONITOR & REPORT OFF TO ONCOMING RN.
--- NOTE | 2023-04-21 19:42 | NUR ---
ASSUMED CARE OF PT AT 0715 BEDSIDE REPORT RECEIVED FROM ESTELA HERRON. PT IS A/O X4, PLEASANT AND COOPERATIVE. AFIB 120-130, AWAITING AMIODARONE DRIP FROM PHARMACY. BP 102/79 MAP 70, PER DR. PERRY, OK TO KEEP MAP >/= 65. ELEQUIS ORDERED. PLACED ON 2L NC DUE TO SUSTAINED DESATURATION WITH O2 SAT 68-75% WITH EXERTION. OOB TO BSC WITH MINIMAL ASSIST. BM X1, VOIDS USING BSC OR URINAL AFTER LASIX GIVEN. SKIN UNCHANGED, ADVISED PT OF PLAN TO REPOSITION EVERY 2 HOURS TO MAINTAIN SKIN INTEGRITY. MED REC NOT COMPLETED, CAREGIVER TO BRING IN CURRENT LIST OF MEDICATIONS TOMORROW MORNING. RN TO CONTINUE TO MONITOR
[2023-04-22] VITALS (28 sets, daily range): BP systolic 93–139; BP diastolic 63–103
[2023-04-22 03:41] LABS: BASOPHILS ABSOLUTE AUTO 0.02 K/mm3 (0.00-0.23); BASOPHILS PERCENT AUTO 0 % (0-2); EOSINOPHILS ABSOLUTE AUTO 0.05 K/mm3 (0.00-0.68); EOSINOPHILS PERCENT AUTO 1 % (0-6); Hematocrit 36.1 % (37.0-53.0); Hemoglobin 11.7 g/dL (13.5-17.5); IMMATURE GRAN ABSOLUTE AUTO 0.01 K/mm3 (0.00-0.10); IMMATURE GRAN PERCENT AUTO 0 % (0-1); LYMPHOCYTES ABSOLUTE AUTO 0.81 K/mm3 (0.84-5.20); LYMPHOCYTES PERCENT AUTO 12 % (21-46); MONOCYTES ABSOLUTE AUTO 0.34 K/mm3 (0.16-1.47); MONOCYTES PERCENT AUTO 5 % (4-13); Mean Corpuscular HGB 28.1 pg (26.0-34.0); Mean Corpuscular HGB Conc 32.4 g/dL (31.5-36.5); Mean Corpuscular Volume 87 fL (80-100); Mean Platelet Volume 10.3 fL (9.1-12.4); NEUTROPHILS ABSOLUTE AUTO 5.66 K/mm3 (1.96-9.15); NEUTROPHILS PERCENT AUTO 82 % (41-73); Platelet Count 268 K/mm3 (150-400); RDW Coefficient Variation 17.6 % (11.7-14.2); RDW Standard Deviation 55.6 fL (35.1-46.3); Red Blood Cell Count 4.16 M/mm3 (4.30-5.90); White Blood Cell Count 6.89 K/mm3 (4.00-11.30)
[2023-04-22 04:22] LABS: Alanine Aminotransfer (ALT/SGP 49 U/L (12-78); Albumin, Blood 2.8 g/dL (3.4-5.0); Albumin/Globulin Ratio 0.7 (0.8-1.8); Alk Phos 102 U/L (50-136); Anion Gap 10 mmol/L (6-16); Aspartate Aminotrans (AST/SGOT 33 U/L (12-37); Bilirubin, Total 0.6 mg/dL (0.1-1.0); Blood Urea Nitrogen 78 mg/dL (8-24); Bun/Creatinine Ratio 37.7 (12.0-20.0); CO2, Blood 21 mmol/L (21-32); Calcium, Blood 7.9 mg/dL (8.5-10.1); Chloride, Blood 106 mmol/L (98-108); Creatinine, Blood 2.07 mg/dL (0.60-1.20); Digoxin (Lanoxin) 0.52 ug/mL (0.80-2.00); Globulin, Blood 3.9 g/dL (2.2-4.0); Glomerular Filtration Rate 33 (60-); Glucose, Blood 242 mg/dL (70-99); Potassium, Blood 4.4 mmol/L (3.5-5.5); Sodium, Blood 137 mmol/L (136-145); Total Protein, Blood 6.7 g/dL (6.4-8.2)
--- NOTE | 2023-04-22 06:10 | NUR ---
NOC SHIFT SUMMARY PT IS A/O, SLEPT OFF AND ON, FLAT AFFECT. AFIB RATE 110-130, AMIODARONE INFUSING AT 0.5, RATE DECREASED AT 0300. BP STABLE, GOAL MAP 65 PER FLOOR SANDING MACHINE OPERATOR. 2 L NC WHILE ASLEEP, INTERMITTENT EPISODES OF APNEA. TOLERATING DIET WELL, NO NAUSEA. OCCASIONALLY INCONTINENT, USES URINAL WHEN AWAKE. SKIN INTACT, DISCOLORATION DUE TO VITILIGO. PIV RIGHT FOREARM, INFUSING WITH GOOD BLOOD RETURN. PIV LEFT WRIST SL, FLUSHES WELL. NO VISITORS AT BEDSIDE CURRENTLY, PT IS EXPECTING A CAREGIVER TO VISIT THIS AM. RN TO CONTINUE TO MONITOR.
--- NOTE | 2023-04-22 07:00 | NUR ---
ASSUMPTION OF CARE PT IS AWAKE DURING BEDSIDE REPORT. HE IS ALERT AND ORIENTED WITH FLAT AFFECT. HE IS RECEIVING AMIODARONE 0.5MG/HR. AFIB ON MONITOR WITH RATE 130S. SBP 110S-130S. HE DENIES CP AND PALPITATIONS AT THIS TIME. HE IS ON 2L NC. HE APPEARS ORTHOPNEIC BUT DENIES SYMPTOMS. LUNGS ARE CLEAR. BOWEL TONES ACTIVE, ABDOMEN SOFT. PT DENIES NEEDING TO VOID AT THIS TIME. BED ALARM ON, BED IN LOW POSITION, CALL LIGHT WITHIN REACH. SEE SHIFT ASSESSMENT.
--- NOTE | 2023-04-22 08:58 | NUR ---
UPDATE HOSPITALIST AND LAW OFFICE ASSISTANT ROUNDED THIS AM. PLAN TO TRANSITION TO PCU. PER LAW OFFICE ASSISTANT, START PO AMIODARONE BID STARTING THIS AM. CONTINUE AMIODARONE DRIP UNTIL THIS EVENING WHEN DRIP IS COMPLETE. PT CURRENTLY EATING BREAKFAST.
--- NOTE | 2023-04-22 10:13 | NUR ---
Pt resting in bed and is A&OX4. Pt with flat affect. Pt denies pain at this time. Mild dyspnea noted and is wearing O2 via NC. Engaged in therapeutic conversation regarding goals of care. Discussed options including current plan of care and considering hospice. Educated on hospice philosophy with V/U made by Pt. Discussed comfort care during hospital stay. Pt would like to focus on comfort and home with [facility]. Pt confirms living with caregiver Marya and Pt's Healthcare Proxy is Marya's mother Leslie. He is agreeable for this RN to call Marya and inform her of goals of care. Called and spoke with Marya. Relayed Pt's wishes with Marya reporting being in agreement. Spoke with Dr Royal and discussed case. Dr Royal signs hospice orders. Called and spoke with Jennifer from [facility]. Plan for [facility] to admit on Thursday. Caremanager office will fax documents to [facility]. Palliative Care will remain available
--- NOTE | 2023-04-22 14:14 | NUR ---
"Spiritual Care Visit | Pt. request Pt. is awake in bed and welcomes my visit. This accounting lecturer expressed gratitude for the Pts. service. Pt. verbally affirmed that he was a man of elian. Listened with empathy and a calming presence. Pt. displayed evidence of being guarded when attempts were made to facilitate a life review. Pt. also displayed evidence of being alert and aware of his present circumstances. Prayed with Pt. Pt. verbalized gratitude for the spiritual care visit."
--- NOTE | 2023-04-22 16:28 | NUR ---
SHIFT SUMMARY PT CONTINUES TO RECEIVE AMIODARONE 0.5MG/HR. PLAN TO CONTINUE INFUSION UNTIL 2100 AND CONTINUE PO AMIODARONE SCHEDULED PER DR PERRY. PT IS ALERT AND ORIENTED, USES CALL LIGHT APPROPRIATELY. HE IS OCCASIONALLY ORTHOPNEIC AND SOB WITH EXCERTION. 2L NC FOR COMFORT. LUNGS ARE CLEAR, DIMINISHED IN BASES. GOOD PO INTAKE THROUGHOUT THE DAY. BOWEL TONES ACTIVE, ABDOMEN SOFT. 1 SMALL BM THIS SHIFT. PT HAS HAD MULTIPLE INCONTINENT VOIDS AND TWO CONTINENT VOIDS. GLUCOSE 424, HOSPITALIST NOTIFIED AND TRANSITIONED TO HIGH SLIDING SCALE. HOSPICE REFERRAL FAXED BY CASE MANAGMENT. BED IN LOW POSITION AND CALL LIGHT WITHIN REACH.
[2023-04-23] VITALS (12 sets, daily range): BP systolic 99–116; BP diastolic 73–99
[2023-04-23 03:15] LABS: BASOPHILS ABSOLUTE AUTO 0.02 K/mm3 (0.00-0.23); BASOPHILS PERCENT AUTO 0 % (0-2); EOSINOPHILS ABSOLUTE AUTO 0.01 K/mm3 (0.00-0.68); EOSINOPHILS PERCENT AUTO 0 % (0-6); Hematocrit 32.5 % (37.0-53.0); IMMATURE GRAN ABSOLUTE AUTO 0.02 K/mm3 (0.00-0.10); IMMATURE GRAN PERCENT AUTO 0 % (0-1); LYMPHOCYTES ABSOLUTE AUTO 0.59 K/mm3 (0.84-5.20); LYMPHOCYTES PERCENT AUTO 8 % (21-46); MONOCYTES ABSOLUTE AUTO 0.67 K/mm3 (0.16-1.47); MONOCYTES PERCENT AUTO 9 % (4-13); Mean Corpuscular HGB 28.4 pg (26.0-34.0); Mean Corpuscular HGB Conc 33.8 g/dL (31.5-36.5); Mean Corpuscular Volume 84 fL (80-100); Mean Platelet Volume 10.3 fL (9.1-12.4); NEUTROPHILS ABSOLUTE AUTO 6.34 K/mm3 (1.96-9.15); NEUTROPHILS PERCENT AUTO 83 % (41-73); Platelet Count 241 K/mm3 (150-400); RDW Coefficient Variation 17.5 % (11.7-14.2); RDW Standard Deviation 53.5 fL (35.1-46.3); Red Blood Cell Count 3.87 M/mm3 (4.30-5.90); White Blood Cell Count 7.65 K/mm3 (4.00-11.30)
[2023-04-23 03:34] LABS: Bun/Creatinine Ratio 40.3 (12.0-20.0); Calcium, Blood 8.2 mg/dL (8.5-10.1); Creatinine, Blood 1.81 mg/dL (0.60-1.20)
--- NOTE | 2023-04-23 07:15 | NUR ---
ASSUMED CARE PATIENT LYING IN BED WITH EYES CLOSED. AWAKENS WHEN STAFF ENTERS ROOM. VOICE IS SOFT, BUT SPEECH IS APPROPRIATE. ASKS QUESTIONS REGARDING CARE. NO FAMILY OR VISITORS AT BEDSIDE. NO MEDICATIONS INFUSING. CALL LIGHT IN REACH.
--- NOTE | 2023-04-23 10:00 | NUR ---
IGNITION RISK PATIENT EDUCATED AND FIRE/IGNITION RISK RELATED TO OXYGEN USE. PATIENT DENIES HAVING ANY IGNITION SOURCES IN POSSESSION AT THIS TIME.
--- NOTE | 2023-04-23 12:07 | NUR ---
Pt resting in bed upon arrival. Pt denies pain at this time. Pt does appear dyspneic as evidenced by work of breathing. Pt's caregiver Marya at bedside. Pt and caregiver report Pt wanting to go home. Due to Marya's availabilty to pick Pt up until not after 1699, [facility] can not admit Pt onto services until Thursday. Due to Pt's current condition, Pt will need a same day admission for hospice. Explained this to Marya who is in agreement and reports her can pick Pt up earlier on Thursday. No other concerns at this time. Palliative Care will remain available
--- NOTE | 2023-04-23 16:04 | NUR ---
Spiritual Care Visit. Pt. is awake in bed and welcomes my visit. Pt. is pleasant. Since Pt. is preparing to go home on hospice this block sealer asked questions regarding the Pts. spiritual background. Considered matters of elian and belief, and Pt. expanded on his personal elian background. Pt. displays evidence of a low sosa demeanor, but verbalizes looking forward to going home to be with his caregiver. Gave prayer of blessing for the Pt. Pt. verbalized gratitude for the prayer and the spiritual care visit(s) and welcomed this block sealer to return.
--- NOTE | 2023-04-23 16:25 | NUR ---
HEART RATE-METOPROLOL CALL MADE TO DR. PERRY TO DISCUSS PATIENT HR OF 141 SUSTAINING AND WAS ADVISED TO CALL DR. DEJESUS FOR ORDERS. CALL MADE TO DR. DEJESUS AND ADVISED THAT CARDIOLOGY HAS SIGNED OFF ON PATIENT'S CASE. CALL MADE TO HOSPITALIST DR. SEXTON AND ORDER RECEIVED FOR METOPROLOL 12.5MG PO BID.
--- NOTE | 2023-04-23 18:06 | NUR ---
SHIFT SUMMARY PATIENT HR REMAINED ELEVATED IN 140'S. SEE HR-METOPROLOL NOTE. HR NOW 132. BP STABLE WITH MAPS GREATER THAN 65. PATIENT C/O DYSPNEA THIS EVENING AFTER DINNER-LUNG SOUNDS CLEAR, SPO2 99% ON 2LPM VIA NC. O2 INCREASED TO 3LPM VIA NC FOR PATIENT COMFORT. PATIENT HAD 1 BM AND 325ML URINE OUT THIS SHIFT. ABLE TO TRANSFER TO [facility] WITH WALKER AND 1 PERSON ASSIST. NO OTHER CHANGES DURING SHIFT.
--- NOTE | 2023-04-23 19:00 | NUR ---
ASSUMED CARE ASSUMED CARE OF PATIENT. AWAKE AND ALERT. SPEECH IS SOFT AND SLOW. OCCASIONAL CONFUSED CONVERSATION, BUT PT IS ORIENTED X 3. CONTINUES WITH ORTHOPNEA. O2 4L NC. DYSPNEA NOTED WITH ANY EXERTION. PT IS SLIGHTLY ANXIOUS BUT CALMS WITH REASSURANCE. MONITOR SHOWS AFLUTTER, RATE 120s. SEE SHIFT ASSESSMENT FOR FULL ASSESSMENT.
[2023-04-24] VITALS (9 sets, daily range): BP systolic 93–114; BP diastolic 70–86
[2023-04-24 00:49] LABS: Hematocrit 32.2 % (37.0-53.0); Hemoglobin 11.2 g/dL (13.5-17.5)
[2023-04-24 01:06] LABS: Albumin, Blood 2.7 g/dL (3.4-5.0); Anion Gap 9 mmol/L (6-16); Blood Urea Nitrogen 74 mg/dL (8-24); Bun/Creatinine Ratio 41.1 (12.0-20.0); CO2, Blood 23 mmol/L (21-32); Calcium, Blood 8.2 mg/dL (8.5-10.1); Chloride, Blood 102 mmol/L (98-108); Glomerular Filtration Rate 39 (60-); Glucose, Blood 233 mg/dL (70-99); Magnesium, Blood 1.9 mg/dL (1.6-2.4); Phosphorus, Blood 3.4 mg/dL (2.5-4.9); Potassium, Blood 5.1 mmol/L (3.5-5.5); Sodium, Blood 134 mmol/L (136-145)
--- NOTE | 2023-04-24 01:31 | NUR ---
TRANSFER TRANSFER TO PCU 2 VIA BED. REPORT GIVEN TO SUZIE HALE RN.
[2023-04-24 02:26] LABS: Digoxin (Lanoxin) 0.48 ug/mL (0.80-2.00)
--- NOTE | 2023-04-24 06:09 | NUR ---
SHIFT SUMMARY PATIENT TRANSFERRED FROM ICU TO PCU 2. PATIENT IS ALERT AND ORIENTED, WEAK ON HIS FEET AND REQUIRES 1 ASSIST TO BEDSIDE COMMODE. PATIENT'S HEART RATE HAS BEEN 126-128, GIVEN FIRST DOSE IV DIGOXIN. BLOOD PRESSURE STABLE. SPO2 100% ON 2 LITERS. PATIENT REPORTED HAVING SHORTNESS OF BREATH SHORTLY AFTER TRANSFER WITH ACTIVITY, DENIES CHEST PAIN. PATIENT EDUCATED ON FIRE SAFETY AND IGNITION RISK IN THE HOSPITAL. WILL CONTINUE TO MONITOR. CALL LIGHT WITHIN REACH.
--- NOTE | 2023-04-24 12:29 | NUR ---
FIRE SAFETY: PT EDUCATED ON RISK REGARDING IGNITION SOURCES AND RISK OF INJURY WHILE OXYGEN IS IN USE. PATIENT DENIES SMOKING AND VERBALIZES UNDERSTANDING.
--- NOTE | 2023-04-24 15:05 | NUR ---
TRANSFER: PT TRANSFERRED TO [place] [id number] VIA WHEELCHAIR, REPORT CALLED TO ESTELA OWUSU. ALL BELONINGS WITH PT.
--- NOTE | 2023-04-24 16:29 | NUR ---
PCU TRANSFER Patient alert & oriented x4. Telemetry in place, sinus tach @ 121. Patient denies discomfort/pain. SBAx1, weakness with ambulation. Provided education to patient r/t ignition sources and risk of injury when oxygen in use. Patient verbalized understanding and denies smoking and or ignition sources in possession. Vital signs stable, afebrile. Plan to discharge home thursday, Will continue plan of care.
--- NOTE | 2023-04-25 03:42 | NUR ---
SHIFT SUMMARY NOC PT A/O X 3-4. CONFUSED AND REPEATS SELF AT TIMES. PT ON TELE RUNNING SINUS TACH @ 122 BPM. NO ACUTE EVENTS TO REPORT. PT EDUCATED ON [facility] IGNITION/EXPLOSIVES NON SMOKING SAFETY POLICY. INCONTINENT OF URINE X 1. PT IS SCHEDULED TO DISCHARGE ON HOME HOSPICE ON Thursday04/27/23. PT IS CURRENTLY RESTING WITH BED ALARM ON, BED IN LOWEST POSITION, AND CALL LIGHT WITHIN REACH.
[2023-04-25 05:09] VITALS: BP 112/84
[2023-04-25 06:20] LABS: Hematocrit 34.5 % (37.0-53.0); Hemoglobin 11.5 g/dL (13.5-17.5)
[2023-04-25 07:58] VITALS: BP 108/79
[2023-04-25 10:18] LABS: Bun/Creatinine Ratio 40.5 (12.0-20.0); Calcium, Blood 8.6 mg/dL (8.5-10.1); Potassium, Blood 4.7 mmol/L (3.5-5.5)
[2023-04-25 12:56] VITALS: BP 114/93
[2023-04-25 17:30] VITALS: BP 111/92
--- NOTE | 2023-04-25 17:56 | NUR ---
SHIFT SUMMARY: Pt remains A&O x3 this shift. Forgetful at times. Generalized weakness noted. Increased shortness of breath when getting back in bed with ast from [facility]. Lung sounds diminished increased on right side. Incontinent of bladder, bsc x4 for formed BM today. Decreased appetite. Denies pain. No further ast needed at this time. Will continue to monitor this shift.
[2023-04-25 19:48] VITALS: BP 121/94
--- NOTE | 2023-04-25 23:16 | NUR ---
MONITOR TELE SPOKE WITH DR SULLIVAN ABOUT PT DNR STATUS AND THAT TELE WAS REPORTING ELEVATED HR WITH ST ELEVATION PT SHOWS NO DISTRESS VITAL SIGNS STABLE NO C/O CHEST PAIN. TELE DCED
--- NOTE | 2023-04-26 04:07 | NUR ---
SHIFT SUMMARY PT THOUGH AT TIMES CONFUSED PT IS PLEASENT AMD EASILY REORIENTED TO HOSPITAL. NO C/O PAIN NO DISTRESS PT SO FAR HAS CALLED APPROPRIATEY POSSIBLE DISCHARGE ON THURSDAY BACK TO [facility] WITH [facility]NAS.
[2023-04-26 04:49] LABS: Hematocrit 35.6 % (37.0-53.0); Hemoglobin 11.9 g/dL (13.5-17.5)
[2023-04-26 05:16] VITALS: BP 97/83
[2023-04-26 06:17] LABS: Albumin, Blood 2.9 g/dL (3.4-5.0); Anion Gap 12 mmol/L (6-16); Blood Urea Nitrogen 77 mg/dL (8-24); Bun/Creatinine Ratio 42.8 (12.0-20.0); CO2, Blood 19 mmol/L (21-32); Calcium, Blood 8.4 mg/dL (8.5-10.1); Chloride, Blood 100 mmol/L (98-108); Glomerular Filtration Rate 39 (60-); Glucose, Blood 93 mg/dL (70-99); Phosphorus, Blood 4.2 mg/dL (2.5-4.9); Potassium, Blood 5.1 mmol/L (3.5-5.5); Sodium, Blood 131 mmol/L (136-145)
[2023-04-26 07:35] VITALS: BP 118/90
[2023-04-26 14:40] VITALS: BP 113/96
[2023-04-26 15:52] VITALS: BP 119/86
--- NOTE | 2023-04-26 18:08 | NUR ---
SHIFT SUMMARY: Pt remains A&Ox3 this shift. Forgetful at times. Denies pain. Increased SOB with activity. 2L nc in place. Skin pale. Generalized weakness noted. Decreased appetite. No needs id or verbalized at this time. Will continue to monitor this shift.
[2023-04-26 19:15] VITALS: BP 116/94
[2023-04-26] MEDS ORDERED: METO50ER PO (21:11)
[2023-04-27 02:19] VITALS: BP 107/83
--- NOTE | 2023-04-27 03:30 | NUR ---
PT A/O X 2- 3 FLAT AFFECT BUT IS APPROPRIATE. PT NORMAL IS SOB STATES HE ISNT IN DISTRESS BUT HAVING PAIN IN THE ABD. PT REFUSED PAIN MEDICATION STATED HE STAYS AWAY FROM THAT STUFF. INTERMINIT CONFUSION CALLING OUT TO ME EASILY REORIENTED SEEMS PT DOSENT WANT TO BE ALONE. ABD IS DISTENDED PT C/O HEAT TO STOMACH DOSENT WANT TO DO ANYTHING ABOUT IT.
[2023-04-27 05:34] LABS: Hematocrit 34.2 % (37.0-53.0); Hemoglobin 11.6 g/dL (13.5-17.5); Mean Corpuscular HGB 28.4 pg (26.0-34.0); Mean Corpuscular HGB Conc 33.9 g/dL (31.5-36.5); Mean Corpuscular Volume 84 fL (80-100); Mean Platelet Volume 10.8 fL (9.1-12.4); Platelet Count 282 K/mm3 (150-400); RDW Coefficient Variation 16.9 % (11.7-14.2); RDW Standard Deviation 51.3 fL (35.1-46.3); Red Blood Cell Count 4.09 M/mm3 (4.30-5.90); White Blood Cell Count 10.53 K/mm3 (4.00-11.30)
[2023-04-27 06:11] LABS: Bun/Creatinine Ratio 38.6 (12.0-20.0); Calcium, Blood 8.8 mg/dL (8.5-10.1); Creatinine, Blood 2.36 mg/dL (0.60-1.20); Potassium, Blood 6.1 mmol/L (3.5-5.5)
--- NOTE | 2023-04-27 07:25 | NUR ---
PT A/O PLEASENT WITH FLAT AFFECT NOT C/O NO DISTRESS PT ENJOYS SPEAKING ABOUT POPULAR CULTURE, POSSIBLY LEAVING IN AM. NO CHANGE IN CONDITION PT YELLING OUT FOR NURSE BUT ONLY WANTS TO TALK OR BE REPOSITIONED. 0600 LAB CALLED [facility] K 6.1, HOSPITALIST WAS NOTIFIED AND NEW ORDERS WERE IMPLEMEMTED, PT TOLD WELL HAD NO ADVERSE EVENT.
--- NOTE | 2023-04-27 09:00 | NUR ---
pt laying in bed eating breakfast, Dr. Eller in to see him, pt a/ox4, flat affect, coopertive with care, follows commands well, denies pain, lung sare clear in upper [place], dim in bases, resp even and unlabored, on 3 liters 02 via n/c, resp even and unlabored, no cough noted, hrr, no edema noted, ppp+2, cap refill< 3sec, vs stable, afebrile, iv sites are clear and patent, abd round firm, denies tenderness with palpation, briefs in place for incont, skin c/w/d, amber cuenca, call light in reach.
[2023-04-27 09:10] VITALS: BP 144/100
[2023-04-27 09:55] LABS: Bun/Creatinine Ratio 37.2 (12.0-20.0); Calcium, Blood 9.3 mg/dL (8.5-10.1); Creatinine, Blood 2.5 mg/dL (0.60-1.20); Potassium, Blood 5.5 mmol/L (3.5-5.5)
[2023-04-27] MEDS ORDERED: HUMULIN R500 UNIT/1 SC (12:53)
[2023-04-27] MEDS ORDERED: ONDA4ODT MM (12:56)
--- NOTE | 2023-04-27 13:00 | NUR ---
Pt has been discharged to home, went over instructions with his caregiver, faxed mew meds to [facility], iv x2 removed intact, left via wheelchair with agriculturist and caregiver in attendence.
== END 2023-04-27 13:26 | disposition hospice, home (50) | DRG 280 ==
LOC: ER 12:41 → ICUE 17:12 → MEDS 17:12 → ICUE 17:45 → PCU 04-24 01:50 → MEDS 04-24 14:54
PROVIDERS: Family Medicine; Internal Medicine; ADMIT Internal Medicine
DX: I48.91 Unspecified atrial fibrillation (principal); I50.23 Acute on chronic systolic (congestive) heart failure; I21.A1 Myocardial infarction type 2; N17.9 Acute kidney failure, unspecified; I13.0 Hypertensive heart and chronic kidney disease with heart failure and stage 1 through stage 4 chronic kidney disease, or unspecified chronic kidney disease; E87.1 Hypo-osmolality and hyponatremia; I25.5 Ischemic cardiomyopathy; Z51.5 Encounter for palliative care; Z66 Do not resuscitate; N18.30 Chronic kidney disease, stage 3 unspecified; I27.20 Pulmonary hypertension, unspecified; E11.22 Type 2 diabetes mellitus with diabetic chronic kidney disease; E78.5 Hyperlipidemia, unspecified; D63.1 Anemia in chronic kidney disease; F25.9 Schizoaffective disorder, unspecified; K21.9 Gastro-esophageal reflux disease without esophagitis; E87.5 Hyperkalemia; I25.10 Atherosclerotic heart disease of native coronary artery without angina pectoris; M54.9 Dorsalgia, unspecified; G89.29 Other chronic pain; G20 Parkinson's disease; I95.9 Hypotension, unspecified; Z88.8 Allergy status to other drugs, medicaments and biological substances; Z79.899 Other long term (current) drug therapy; Z79.4 Long term (current) use of insulin; Z95.5 Presence of coronary angioplasty implant and graft; Z79.82 Long term (current) use of aspirin; Z79.02 Long term (current) use of antithrombotics/antiplatelets; Z79.811 Long term (current) use of aromatase inhibitors; Z79.84 Long term (current) use of oral hypoglycemic drugs; Z79.01 Long term (current) use of anticoagulants; I25.2 Old myocardial infarction
CPT/HCPCS: 36415; 71045; 74018; 80048; 80053; 80069; 80162; 82947; 83735; 83880; 84484; 85014; 85018; 85025; 85027; 93005; 93010; 94762; 96365; 99285-25; A9270; J0282; J0612; J1160; J1815; J1940; J2405; J3475; J7030; J7060